=== PATIENT | male | born 1940 | race Caucasian/White ===

== ENCOUNTER 2020-08-06 06:14 | Day surgery (SDC) | payer MEDICARE, BC ==
[~2020-08-06 06:14] MED LIST: Dextrose 5%-0.45% NaCl 1,000 ML IV SCH; Midazolam 1 MG/ML 2 ML SDV ONE; Sodium Chloride 0.9% 10 ML Syringe FLUSH PRN; fentaNYL 100 MCG/2 ML SDV ONE
[2020-08-06] MEDS ORDERED: Midazolam 1 MG/ML 2 ML SDV IV ONE ×5 (06:15→07:25)
[2020-08-06] MEDS ORDERED: fentaNYL 100 MCG/2 ML SDV IV ONE ×3 (06:15→07:18)
--- NOTE | 2020-08-06 08:10 | OR ---
DATE: 08/06/2020 PROCEDURE: Total colonoscopy. INSTRUMENT USED: PCF-H190DL Olympus video colonoscope. PREMEDICATIONS: Fentanyl 100 mcg intravenous, Versed 3 mg intravenous, nasal O2 cannula. The procedure was done under pulse oximetry, BP recording, and air sampling and monitoring. INDICATION: The patient with recent CTA study suspicious for right colonic malignancy. Colonoscopic examination is done for detection of any malignant lesions, endoscopic hemostasis therapy if needed. DESCRIPTION OF PROCEDURE: Initial rectal exam showed external hemorrhoidal tags. Rigid anoscopy showed small internal hemorrhoids without bleeding from them. The colonoscope was passed with ease. Numerous scattered diverticula were noted in the distal left colon along with significant deformity. The scope was passed with ease up to the ileocecal area. Photographs were taken of the normal-appearing cecum identified by double-bulged ileocecal folds. No bleeding was noted from any of the visualized areas at the commencement of the examination. Bowel preparation was found to be adequate, Berwick scale 2 in all the regions, total score 6. No stricture. No vascular ectasia. No large isolated ulcerations seen. No evidence of diffuse inflammatory bowel disease in the form of friability, contact bleeding, or ulcerations. Numerous diminutive scattered benign-appearing polyps were noted. Probing the proximal sides of folds and flexures using adequate distention and clearing up the stool material, withdrawal of the scope was made, cecum to rectum time over 6 minutes. No bleeding was noted from any of the visualized areas at the completion of examination. IMPRESSION: 1. External and internal hemorrhoids. 2. Diverticulosis. 3. Diminutive colonic polyps. The patient tolerated the procedure well. [facility] /[id number]
--- NOTE | 2020-08-06 15:05 | LETTER ---
08/06/2020 RE: TOBI FLORES : 1940 L[birth year] Cordova M.D [address] [place] [address] Cordova: Mr. Tobi Flores colonoscopic examination done this morning, and he tolerated the procedure well. I herewith send a copy of the endoscopy note and photographs for your review. Thank you, Sincerely, [facility] /[id number]
== END 2020-08-06 09:41 | disposition home or self-care (01) ==
LOC: DL.ENDO 06:14
PROVIDERS: ATTEND Internal Medicine Gastroenterology
DX: K63.5 Polyp of colon (principal); K57.30 Diverticulosis of large intestine without perforation or abscess without bleeding; K64.8 Other hemorrhoids; F17.200 Nicotine dependence, unspecified, uncomplicated; C34.90 Malignant neoplasm of unspecified part of unspecified bronchus or lung; E78.5 Hyperlipidemia, unspecified; J44.9 Chronic obstructive pulmonary disease, unspecified; I25.10 Atherosclerotic heart disease of native coronary artery without angina pectoris; Z85.51 Personal history of malignant neoplasm of bladder
CPT/HCPCS: J2250; J3010; J7042

== ENCOUNTER 2024-03-25 07:27 | Day surgery (SDC) | payer MEDICARE, BC ==
[~2024-03-25 07:27] MED LIST changes: -Dextrose 5%-0.45% NaCl 1,000 ML IV SCH; -Sodium Chloride 0.9% 10 ML Syringe FLUSH PRN
[2024-03-25] MEDS: Dextrose 5%-0.45% NaCl 1,000 ML IV SCH (07:49)
[2024-03-25] MEDS: fentaNYL 100 MCG/2 ML SDV IV ONE (08:26)
[2024-03-25] MEDS: Midazolam 1 MG/ML 2 ML SDV IV ONE (08:27)
== END 2024-03-25 10:20 | disposition home or self-care (01) ==
LOC: DL.ENDO 07:27
PROVIDERS: ATTEND Internal Medicine Gastroenterology
DX: D13.2 Benign neoplasm of duodenum (principal); D13.1 Benign neoplasm of stomach; J44.9 Chronic obstructive pulmonary disease, unspecified; E78.5 Hyperlipidemia, unspecified; D50.9 Iron deficiency anemia, unspecified; Z79.899 Other long term (current) drug therapy
CPT/HCPCS: 88305; J2250; J3010; J7042

== ENCOUNTER 2024-04-18 06:21 | Day surgery (SDC) | payer MEDICARE, BC ==
[2024-04-18] MEDS ORDERED: fentaNYL 100 MCG/2 ML SDV IV ONE (06:22)
[2024-04-18] MEDS ORDERED: Midazolam 1 MG/ML 2 ML SDV IV ONE (06:22)
[2024-04-18] MEDS: Dextrose 5%-0.45% NaCl 1,000 ML IV SCH (06:51)
[2024-04-18] MEDS: fentaNYL 100 MCG/2 ML SDV IV ONE ×2 (07:13→07:19)
[2024-04-18] MEDS: Midazolam 1 MG/ML 2 ML SDV IV ONE ×3 (07:14→07:21)
== END 2024-04-18 09:00 | disposition home or self-care (01) ==
LOC: DL.ENDO 06:21
PROVIDERS: ATTEND Internal Medicine Gastroenterology
DX: C18.0 Malignant neoplasm of cecum (principal); K57.30 Diverticulosis of large intestine without perforation or abscess without bleeding; K64.8 Other hemorrhoids; D50.9 Iron deficiency anemia, unspecified; I25.10 Atherosclerotic heart disease of native coronary artery without angina pectoris
CPT/HCPCS: 88305; 88341; 88342; J2250; J3010; J7799

== ENCOUNTER 2024-06-24 14:47 | Emergency (ER) | payer MEDICARE, BC ==
[2024-06-24 15:53] LABS: BASOPHILS PERCENT AUTO 0.5 % (0.0-1.0); EOSINOPHILS PERCENT AUTO 0.2 % (1.0-3.0); HEMOGLOBIN 8.2 g/dL (14.0-18.0); LYMPHOCYTES PERCENT AUTO 14.3 % (20.5-50.1); MEAN CORPUSCULAR HGB CONC 29.3 g/dL (33.0-35.0); MEAN CORPUSCULAR VOLUME 78.7 fL (80-100); MONOCYTES PERCENT AUTO 11.6 % (2-8); NEUTROPHILS PERCENT AUTO 73.4 % (42.2-75.2); PLATELET COUNT,PLT 241 10^3/uL (150-450); RED BLOOD CELL COUNT 3.56 10^6/uL (4.6-6.2); WHITE BLOOD CELL COUNT,WBC 5.9 10^3/uL (5.0-10.0)
[2024-06-24] MEDS: Sodium Chloride 0.9% 1,000 ML IV ONE (16:06)
[2024-06-24] MEDS: Sodium Chloride 0.9% 10 ML Syringe FLUSH PRN (16:06)
[2024-06-24 16:14] LABS: ALANINE AMINOTRANSFERASE,ALT 27 U/L (16-63); ALBUMIN 2.7 g/dL (3.4-5.0); ALKALINE PHOSPHATASE 112 U/L (46-116); ANION GAP 9.9 mEq/L (7-13); ASPARTATE AMNIOTRANSFERASE,AST 18 U/L (15-37); BILIRUBIN TOTAL 0.7 mg/dL (0.2-1.0); BLOOD UREA NITROGEN,BUN 19 mg/dL (7-18); BUN/CREATININE RATIO 18.8 (No establ ref range); CALCIUM 8.4 mg/dL (8.5-10.1); CARBON DIOXIDE,CO2 29 mmol/L (21-32); CHLORIDE,CL 102 mmol/L (98-107); CREATININE 1.01 mg/dL (0.70-1.30); EST CRCL DRUG DOSING (CG) 48.25 mL/min; GLUCOSE RANDOM 131 mg/dL (70-99); MAGNESIUM 1.6 mg/dL (1.8-2.4); POTASSIUM,K 3.9 mmol/L (3.5-5.1); PROTEIN TOTAL,TP 5.7 g/dL (6.4-8.2); SODIUM,NA 137 mmol/L (136-145)
[2024-06-24 16:19] LABS: LACTIC ACID 1.5 mmol/L (0.4-2.0)
[2024-06-24 16:20] LABS: C-REACTIVE PROTEIN < 0.50 ng/dL (<=0.50); ESTIMATED GFR 73 mL/min (>=60)
[2024-06-24] MEDS: Magnesium Sulfate/Water 2 GM in Premix Bag 1 BAG IV ONE (16:58)
[2024-06-24 17:02] LABS: APPEARANCE,URINE CLEAR (CLEAR); BILIRUBIN,URINE NEGATIVE (NEGATIVE); COLOR,URINE YELLOW (YELLOW); GLUCOSE,URINE NEGATIVE (NEGATIVE); KETONES,URINE NEGATIVE (NEGATIVE); LEUKOCYTE ESTERASE,URINE NEGATIVE (NEGATIVE); NITRITE,URINE NEGATIVE (NEGATIVE); OCCULT BLOOD,URINE NEGATIVE (NEGATIVE); PROTEIN,URINE NEGATIVE (NEGATIVE)
[2024-06-24 17:25] LABS: AMPHETAMINES,URINE NEGATIVE (NEGATIVE); BARBITURATES,URINE NEGATIVE (NEGATIVE); BENZODIAZEPINE,URINE NEGATIVE (NEGATIVE); MDMA (ECSTASY), URINE NEGATIVE (NEGATIVE); METHADONE,URINE NEGATIVE (NEGATIVE); METHAMPHETAMINES,URINE NEGATIVE (NEGATIVE); OPIATES,URINE NEGATIVE (NEGATIVE); OXYCODONE,URINE NEGATIVE (NEGATIVE); PHENCYCLIDINE,URINE NEGATIVE (NEGATIVE); TCA,URINE NEGATIVE (NEGATIVE)
== END 2024-06-24 19:23 | disposition home or self-care (01) ==
LOC: DL.ED 14:47
DX: R41.82 Altered mental status, unspecified (principal); I25.10 Atherosclerotic heart disease of native coronary artery without angina pectoris; I25.2 Old myocardial infarction; E78.00 Pure hypercholesterolemia, unspecified; J44.9 Chronic obstructive pulmonary disease, unspecified; Z79.82 Long term (current) use of aspirin; Z79.899 Other long term (current) drug therapy; Z88.5 Allergy status to narcotic agent; Z88.2 Allergy status to sulfonamides
CPT/HCPCS: 36415; 70450; 80053; 80305; 81003; 82140; 83605; 83735; 85025; 86140; 96361; 96365; 96366; 99285; J3475; J7030; U0002; J3490